=== PATIENT | male | born 1990 | race American Indian/Alaskan Native ===

== ENCOUNTER 2017-01-15 13:34 | Emergency (ER) | payer SELFPAY ==
[2017-01-15 14:19] VITALS: BP 151/91
== END 2017-01-16 05:00 | disposition left against medical advice (07) ==
LOC: ED 13:34
DX: S61.411A Laceration without foreign body of right hand, initial encounter (principal); W45.8XXA Other foreign body or object entering through skin, initial encounter; Y93.89 Activity, other specified; Y92.89 Other specified places as the place of occurrence of the external cause; Y99.8 Other external cause status; Z53.21 Procedure and treatment not carried out due to patient leaving prior to being seen by health care provider